=== PATIENT | male | born 1995 | race Caucasian/White ===

== ENCOUNTER 2018-10-18 21:43 | Day surgery (SDC) | payer OTHER ==
[~2018-10-18] VITALS: Ht 182.9 cm; Wt 92.0 kg
[2018-10-18 22:10] LABS: COLLECTION METHOD CLEAN CATCH
[2018-10-18 22:13] LABS: HEMATOCRIT 44.3 % (42.0-52.0); MEAN CELL VOLUME 90 fl (80.0-100.0); MEAN CORPUSCULAR HEMOGLOBIN 32 pg (27.0-31.0); MEAN CORPUSCULAR HGB CONC 36 g/dl (33.0-37.0); MEAN PLATELET VOLUME 9.5 fl (7.4-10.4); PLATELET COUNT 208 K/mm3 (130-400); RED BLOOD COUNT 4.94 M/mm3 (4.20-5.60); REDCELL DISTRIBUTION WIDTH-CV 11.6 % (11.5-14.5)
[2018-10-18 22:15] LABS: PH 6 (5-8); SQUAMOUS EPITHELIAL None Seen /hpf; URINE APPEARANCE Clear; URINE BACTERIA None Seen /hpf; URINE BILIRUBIN Negative (NEGATIVE); URINE BLOOD Negative (NEGATIVE); URINE COLOR Straw; URINE GLUCOSE Negative (NEGATIVE); URINE KETONE Trace (NEGATIVE); URINE LEUKOCYTE ESTERASE Negative (NEGATIVE); URINE NITRATE Negative (NEGATIVE); URINE PROTEIN(semi-quant) Negative (NEGATIVE); URINE RBC None Seen /hpf; URINE UROBILINOGEN Negative (NEGATIVE)
[2018-10-18 22:26] LABS: ALBUMIN 4.5 gm/dL (3.5-5.0); BILIRUBIN,TOTAL 0.8 mg/dL (0.0-1.0); C-REACTIVE PROTEIN 6.2 mg/dL (0.0-0.9); CALCIUM 9.1 mg/dL (8.4-10.2); CREATININE, serum 0.96 mg/dL (0.66-1.25); POTASSIUM 3.8 mmol/L (3.4-5.0); TOTAL PROTEIN 8.1 gm/dL (6.4-8.2)
[2018-10-18 22:33] LABS: BAND 32 % (0-10); EOSINOPHIL 1 % (0-4); LYMPHOCYTE 8 % (20.0-51.0); NEUTROPHILS 50 % (42.0-75.2); PLATELET ESTIMATE NORMAL (NORMAL)
[2018-10-19] VITALS (11 sets, daily range): BP systolic 110–137; BP diastolic 55–75; PULSE 56–98; TEMP 97.8–99.3
--- NOTE | 2018-10-19 01:54 | NUR ---
Patient admitted to the floor from the ER via wheelchair at 0100. Admission B and assessment completed. Med-rec and allergies reviewed and confirmed. Patient is A&O x 4. VSS. Reports pain to abdomen RLQ that has been there since yesterday at 3 PM, prn Dilaudid given. Patient requested nausea medication, states he has thrown up in the last day a few times. IVF initiated per orders. Denies any other concerns or needs, call light is within reach.
--- NOTE | 2018-10-19 05:08 | NUR ---
Patient has rested well since arriving to the floor. VSS. Dilaudid given to control RLQ abdominal pain. NPO for possible surgery today. Zofran given once after arriving to the floor, denies feeling nauseous at this time. Voiding with no difficuities. IVF remain infusing per orders. Up with standby assist, gait is steady. Denies any concerns or needs.
--- NOTE | 2018-10-19 08:17 | NUR ---
Patient resting in bed. Patient family at bedside. Patient NPO. Reports nausea, Zofran per orders. Patient Pain elevated. Dilaudid per orders. rounded this am. Consent obtained prior to pain medication. Patient given antivert pre op per orders & Lr to gravity. Patient going to shower. Will monitor.
--- NOTE | 2018-10-19 08:57 | NUR ---
Patient to Or with Daryl laboy. Will await his return
--- NOTE | 2018-10-19 10:42 | NUR ---
Patient has returned from the OR. Sleepy. Vss on Room air. Lap site x3, open to air, edge well approximated. Water provided. His parents at bedside. Kwan lombardo.
--- NOTE | 2018-10-19 13:16 | NUR ---
First visit from the computer architect. No needs right now.
--- NOTE | 2018-10-19 14:32 | NUR ---
Patient continues to do well. He has been up to the bathroom & voided. Patient Vss. He ate and tolerated well. Kwan lombardo
--- NOTE | 2018-10-19 15:31 | NUR ---
Patient is a student at [employer]. SW called [employer] and informed them of patients hospitalization and reported that he would be out the rest of the week. Patient does not have a PCP and obtains his medications from [facility]. Patient is dc home today with family support.
--- NOTE | 2018-10-19 15:35 | NUR ---
Patient ready for discahrge his parents here to take him home. We reviewed all discharge teaching. Script for norco sent with patient. We reviewed medication safety. We discussed activty & diet, incision care & signs & symptoms of infections. Patient & family deny questions or concerns. Patient ambulated out with all belongings. Patient given motrin prior to discharge for pain. He is aware of follow up appt in 2 weeks. Int was DC
== END 2018-10-19 15:39 | disposition home or self-care (01) ==
LOC: COL.ER 21:43 → SURG 22:55 → SDCO 22:55
PROVIDERS: Emergency Medicine
DX: K35.80 Unspecified acute appendicitis (principal)
CPT/HCPCS: OP; J1170; J1885; J2405; J2543; J2704; J3010; J7030; J7120; Q9967